=== PATIENT | female | born 1955 | race Caucasian/White ===

== ENCOUNTER → 2016-10-19 | Outpatient (CLI) | payer MEDICAID ==
[~2016-10-19] MED LIST: ALBUTEROL-200 PUFFS/ IH; CIPROFLOXACIN500 MG PO; GABAPENTIN300 M1 PO; HYDROCODONE-APA1 TA2 PO; HYDROCODONE/ACE1 TA5 PO; NORCO1 TAB PO; OMEPRAZOLE40 MG PO; PANTOPRAZOLE SO40 MG PO; PROMETH-CODEIN 65 ML PO; RANITIDINE HCL150 MG PO; SYMBICORT 10.10.2 ML IH; TRICOR 145 MG145 MG NG; TUDORZA PR400 MCG/Ac IH; VALIUM 5MG TABLE5 MG PO; VENTOLIN H0.09 MG/AC IH; ZOLOFT 50MG TAB50 MG PO; ZOLOFT100 MG PO
[2016-10-19 16:00] LABS: AMPHETAMINES/METAMPHETAMINES NEGATIVE ng/mL (<1000)
== END ==
LOC: LAB 13:53
PROVIDERS: Emergency Medicine
DX: Z79.899 Other long term (current) drug therapy (principal)

== ENCOUNTER → 2017-03-20 | Outpatient (CLI) | payer MEDICAID ==
[~2017-03-20] MED LIST changes: +GABAPENTIN300 MG PO; +LINZESS145 MCG PO
[2017-03-20 13:12] LABS: AMPHETAMINES/METAMPHETAMINES NEGATIVE ng/mL (<1000)
== END ==
LOC: LAB 11:41
PROVIDERS: Emergency Medicine
DX: Z79.899 Other long term (current) drug therapy (principal)